=== PATIENT | female | born 1990 | race Caucasian/White ===

== ENCOUNTER → 2020-10-10 09:50 | Outpatient (BNVA) | payer OTHER, SELFPAY | PROVIDERS: Visit Provider Internal Medicine | DX: S30.0XXA Contusion of lower back and pelvis, initial encounter (principal); S46.819A Strain of other muscles, fascia and tendons at shoulder and upper arm level, unspecified arm, initial encounter; S33.8XXA Sprain of other parts of lumbar spine and pelvis, initial encounter; W18.39XA Other fall on same level, initial encounter | CPT/HCPCS: 99203 ==

== ENCOUNTER → 2020-10-15 13:15 | Outpatient (BNVA) | payer OTHER, SELFPAY | PROVIDERS: Visit Provider Physician Assistant Medical | DX: S30.0XXA Contusion of lower back and pelvis, initial encounter (principal); S39.012A Strain of muscle, fascia and tendon of lower back, initial encounter; S29.012A Strain of muscle and tendon of back wall of thorax, initial encounter; W18.30XA Fall on same level, unspecified, initial encounter | CPT/HCPCS: 72070; 72100; 99214 ==

== ENCOUNTER → 2020-10-24 14:21 | Outpatient (BNVA) | payer OTHER, SELFPAY | PROVIDERS: Visit Provider Physician Assistant Medical | DX: S39.012D Strain of muscle, fascia and tendon of lower back, subsequent encounter (principal); S29.012D Strain of muscle and tendon of back wall of thorax, subsequent encounter; S32.2XXD Fracture of coccyx, subsequent encounter for fracture with routine healing; W18.30XD Fall on same level, unspecified, subsequent encounter | CPT/HCPCS: 99213 ==